=== PATIENT | female | born 1985 | race Caucasian/White ===

== ENCOUNTER 2020-10-24 02:38 | Inpatient (IN) | payer OTHER ==
[2020-10-24] MEDS ORDERED: LACTATED RINGERS SOLUTION 1,000 ML IV ONE (03:30)
[2020-10-24 03:43] VITALS: BMI 30.7
[2020-10-24 03:53] LABS: BASO % 0.3 % (0-2.0); EOS % 0.3 % (0-4.5); HEMATOCRIT 29.3 % (32.4-45.2); HEMOGLOBIN 9.9 GM/dL (10.7-15.3); LYMPH % 14.6 % (8-40); MCH 28.7 pg (25.7-33.7); MCHC 33.7 g/dl (32.0-36.0); MEAN CELL VOLUME 85.2 fl (80-96); MEAN PLT VOLUME 10.4 fl (7.5-11.1); MONO % 6.8 % (3.8-10.2); PLATELET COUNT 223 K/MM3 (134-434); RBC 3.44 M/mm3 (3.60-5.2); RDW 14.8 % (11.6-15.6); WHITE BLOOD COUNT 10.4 K/mm3 (4.0-10.0)
[2020-10-24 04:07] LABS: INR 0.97 (0.83-1.09); PROTHROMBIN TIME (PATIENT) 11.9 SEC (9.7-13.0)
[2020-10-24 04:13] LABS: BLOOD UREA NITROGEN 8.8 mg/dL (7-18); CALCIUM 8.8 mg/dL (8.5-10.1)
[2020-10-24 04:17] LABS: CREATININE 0.6 mg/dL (0.55-1.3)
[2020-10-24] MEDS ORDERED: PCA PUMP NR ONE (05:10)
[2020-10-24] MEDS ORDERED: FENTANYL/BUPIVACAINE/NS/PF - PCEA - 50 ML DISP.SYRIN EP ONE (05:11)
[2020-10-24] MEDS ORDERED: ELECTROLYTE-148 SOLN 1,000 ML IV SCH (05:15)
[2020-10-24] MEDS ORDERED: OXYTOCIN 30 UNITS in 0.9% NS 30 UNIT/500 ML INFUS.BAG IVPB SCH (05:15)
[2020-10-24 05:32] LABS: POTASSIUM 3.7 mmol/L (3.5-5.1)
[2020-10-24 05:52] LABS: HIV INTERPRETATION NEGATIVE (NEGATIVE)
[2020-10-24] MEDS ORDERED: NALOXONE HCL 0.4 MG/ML VIAL IVPUSH PRN (07:01)
[2020-10-24] MEDS ORDERED: FENTANYL/BUPIVACAINE/NS/PF - PCEA - 50 ML DISP.SYRIN EP SCH (07:15)
[2020-10-24] MEDS ORDERED: OXYTOCIN 20 UNITS in 0.9% NS 20 UNIT/1,000 ML INFUS.BAG IV ONE (07:39)
[2020-10-24] MEDS ORDERED: oxyCODONE HCL 5 MG TABLET PO PRN (09:19)
[2020-10-24] MEDS ORDERED: WITCH HAZEL 50% (TUCKS) 40 PAD/JAR PAD TP PRN (09:19)
[2020-10-24] MEDS ORDERED: BISACODYL 10 MG SUPP.RECT RC PRN (09:19)
[2020-10-24] MEDS ORDERED: BENZOCAINE 28 GM HEMORRHOIDAL OINTMENT TP PRN (09:19)
[2020-10-24] MEDS ORDERED: BENZOCAINE 20% 57 GM BOTTLE TP PRN (09:19)
[2020-10-24] MEDS ORDERED: METHYLERGONOVINE MALEATE 0.2 MG/1 ML AMP IM PRN (09:19)
[2020-10-24] MEDS ORDERED: OXYTOCIN 20 UNITS in 0.9% NS 20 UNIT/1,000 ML INFUS.BAG IV SCH (09:30)
[2020-10-24] MEDS: PRENATAL VITAMINS W/ FOLIC ACID TABLET (FP) PO SCH (12:17)
[2020-10-24] MEDS: IBUPROFEN 600 MG TABLET (FP) PO PRN (20:13)
[2020-10-24] MEDS: ACETAMINOPHEN 325 MG TABLET (FP) PO PRN (20:13)
[2020-10-24] MEDS ORDERED: SENNOSIDES/DOCUSATE COMBO (SENNA PLUS) TABLET (UD) PO PRN (22:00)
[2020-10-25 08:32] LABS: BASO % 0.3 % (0-2.0); EOS % 0.4 % (0-4.5); HEMATOCRIT 25.1 % (32.4-45.2); HEMOGLOBIN 8.5 GM/dL (10.7-15.3); LYMPH % 17.6 % (8-40); MCH 28.8 pg (25.7-33.7); MCHC 33.6 g/dl (32.0-36.0); MEAN CELL VOLUME 85.8 fl (80-96); MEAN PLT VOLUME 10.6 fl (7.5-11.1); MONO % 7.4 % (3.8-10.2); NEUT % 74.3 % (42.8-82.8); PLATELET COUNT 211 K/MM3 (134-434); RBC 2.93 M/mm3 (3.60-5.2); RDW 15.1 % (11.6-15.6)
[2020-10-25] MEDS: PRENATAL VITAMINS W/ FOLIC ACID TABLET (FP) PO SCH (10:08)
[2020-10-25 11:51] VITALS: TEMP 97.8
[2020-10-25] MEDS ORDERED: SENNOSIDES/DOCUSATE COMBO (SENNA PLUS) TABLET (UD) PO PRN (22:00)
[2020-10-25 23:08] VITALS: BP 113/72; PULSE 74
[2020-10-26] MEDS: IBUPROFEN 600 MG TABLET (FP) PO PRN (08:43)
[2020-10-26] MEDS: ACETAMINOPHEN 325 MG TABLET (FP) PO PRN (08:44)
[2020-10-26] MEDS: PRENATAL VITAMINS W/ FOLIC ACID TABLET (FP) PO SCH (10:40)
== END 2020-10-26 12:45 | disposition home or self-care (01) | DRG 560 ==
LOC: JLDR 02:38 → J3W 11:15
PROVIDERS: ADMIT Obstetrics & Gynecology; ATTEND Obstetrics & Gynecology
PROC: 10E0XZZ Delivery of Products of Conception, External Approach (ICD-10-PCS; principal; 2020-10-24)
DX: O42.02 Full-term premature rupture of membranes, onset of labor within 24 hours of rupture (principal); O70.0 First degree perineal laceration during delivery; Z3A.39 39 weeks gestation of pregnancy; Z37.0 Single live birth
CPT/HCPCS: 36415; 59409; 80048; 85025; 85461; 85610; 85730; 86780; 86850; 86870; 86900; 86901; 86902; 86999; 87389; C9803; U0003